=== PATIENT | male | born 1955 | race Caucasian/White ===

== ENCOUNTER 2025-04-15 09:01 | Outpatient (CLI) | payer OTHER, SELFPAY ==
--- NOTE | 2025-04-15 09:30 | CRLHL7_ITS ---
For Patients: As a result of the Century Cures Act, medical imaging exams and procedure reports are released immediately into your electronic medical record. You may view this report before your referring provider. If you have questions, please contact your health care provider. EXAM: MRI OF THE LEFT SHOULDER, WITHOUT CONTRAST CLINICAL INDICATION: Shoulder pain. PRIOR SURGERY: None reported. COMPARISON PLAIN FILMS: 31 March 2025 COMPARISON CROSS-SECTIONAL IMAGING STUDIES: None available at time of interpretation. TECHNICAL: Axial, sagittal oblique and coronal oblique T1, PD, PD FS and T2-weighted images. FINDINGS: GLENOHUMERAL JOINT: Effusion/Cyst: Small effusion. Mild hazy strandy synovitis. No obvious erosion. No paralabral or periarticular cyst or ganglion. Humeral Head Articular Cartilage: Diffuse grade 2 thinning. Glenoid Articular Cartilage: No osteochondral lesion or abnormality. Loose Bodies: No appreciable loose bodies. Capsule: No convincing evidence of adhesive capsulitis or capsular injury. OSSEOUS STRUCTURES: No fracture, marrow edema or marrow replacement process. CORACOACROMIAL ARCH: Acromial Morphology: Type 2 acromial morphology. No abnormal lateral or anterior downward sloping of the acromion. No os acromiale. Shallow subacromial spur at the insertion of the coracoacromial ligament. Lateral acromial thickness is 6 mm. Acromiohumeral Interval: The acromiohumeral interval is From superior subluxation humeral head. At its narrowest, the interval measures 3 mm. No abnormal thickening of the coracoacromial ligament. Coracohumeral Interval: The coracohumeral interval is narrow, perhaps with some anterior subluxation humeral head contributing. At its narrowest, the coracohumeral interval measures 4-5 mm. Coracoid index is 16 mm. ACROMIOCLAVICULAR JOINT REGION: AC Joint: Moderate hypertrophic arthrosis with small joint effusion. Ligaments: The coracoclavicular ligaments are intact. BURSAE: Subacromial-Subdeltoid: Small to moderate amount of simple appearing fluid diffusely. Subcoracoid: No abnormal bursal edema, thickening or bursal fluid. ROTATOR CUFF TENDONS AND MUSCLES AND DELTOID: Supraspinatus: Full-thickness tear retracted to the glenohumeral joint line with frayed tapered appearance of the retracted tendon. Mild grade 1 volume loss atrophy. Infraspinatus: Full-thickness tear retracted to the posterior humeral head. No significant muscle atrophy or edema. Teres Minor: No tendinosis, tendon tearing, muscle atrophy or muscle edema. Subscapularis: Prominent marginal degenerative tearing thins the superior tendon by 50 percent of expected. Intermediate signal tendinosis in the frayed intact tendon remnant. No muscle atrophy or edema. Deltoid: No muscle atrophy or edema. BICEPS TENDON, LONG HEAD: No intact biceps in the field of view with appearance favoring avulsion at the anchor which is blunted with the superior labrum. No significant fluid in the biceps tendon sheath. GLENOID LABRUM: Blunted superior labrum with some patchy intermediate signal mucoid degeneration and degenerative tearing. Mild blunting of the labrum circumferentially. No linear tear or displacement. OTHER FINDINGS: There is no abnormality within the suprascapular or spinoglenoid notches nor within the quadrilateral space. No axillary adenopathy or mass. IMPRESSION: 1. Subacute full-thickness tear supraspinatus and infraspinatus with superior subluxation humeral head. Minor grade 1 muscle atrophy supraspinatus. 2. Degenerative appearing partial tearing thins the subscapularis by 50 percent of expected without full-thickness defect. 3. Moderate hypertrophic arthrosis AC joint. 4. Subacromial spur at the insertion of normal thickness coracoacromial ligament. 5. Moderately large effusion between the subacromial/subdeltoid bursa and glenohumeral joint. Some synovitis in the joint. 6. 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 Dictated by Pablo Pappas MD @ 04/16/2025 1:20:27 PM (Electronically Signed)
== END 2025-04-15 09:02 | disposition home or self-care (01) ==
LOC: MRI 09:03
PROVIDERS: PCP Nurse Practitioner Family; Visit Provider Nurse Practitioner Family
DX: M25.512 Pain in left shoulder (principal); M75.102 Unspecified rotator cuff tear or rupture of left shoulder, not specified as traumatic; M19.012 Primary osteoarthritis, left shoulder; M25.412 Effusion, left shoulder; M94.212 Chondromalacia, left shoulder
CPT/HCPCS: 73221

== ENCOUNTER 2025-07-12 16:35 | Emergency (ER) | payer OTHER, SELFPAY ==
[2025-07-12] VITALS (26 sets, daily range): BP systolic 128–165; BP diastolic 81–126; PULSE 69–124; RESP 5–20; TEMP 36.3; O2SAT 91–99; BMI 29.5
--- NOTE | 2025-07-12 17:00 | ED.ARRPALP ---
HPI - Arrhythmia/Palpitations General Chief Complaint: Arrhythmia/Palpitations <Perez Obando MD - Last Filed: 07/12/25 18:45> Stated Complaint: irregular heart rate <Perez Obando MD - Last Filed: 07/12/25 18:45> Time Seen by Provider: 07/12/25 16:44 <Perez Obando MD - Last Filed: 07/12/25 18:45> History of Present Illness HPI narrative: This 69-year-old male comes in reporting palpitations that began earlier today. He does not report any chest pain. He has not had any nausea, vomiting, lightheadedness, or diaphoresis. He does report a history of hypertension and has rotator cuff problem in his shoulder needing a surgery. <Perez Obando MD - Last Filed: 07/12/25 18:45> Related Data Home Medications: Home Medications ?Medication ?Instructions ?Recorded ?Confirmed allopurinol 100 mg tablet 100 mg PO DAILY 03/31/25 04/18/25 amoxicillin 500 mg capsule 2,000 mg PO ONCE 03/31/25 03/31/25 atorvastatin 20 mg tablet 20 mg PO DAILY 03/31/25 04/18/25 budesonide-formoterol HFA 160 2 puff inhalation BID 03/31/25 04/18/25 mcg-4.5 mcg/actuation aerosol inhaler (Breyna) esomeprazole magnesium 20 mg 20 mg PO QDAY 03/31/25 04/18/25 capsule,delayed release losartan 100 mg tablet 100 mg PO DAILY 03/31/25 04/18/25 multivit with vr-PO-[id number]-omega 1 cap PO 03/31/25 04/18/25 3,6,9 no.3 400 mcg-300 mcg capsule spironolactone 25 mg tablet 25 mg PO DAILY 03/31/25 04/18/25 Previous Rx's ?Medication ?Instructions ?Recorded alfuzosin 10 mg tablet,extended 10 mg PO DAILY #90 tabs 03/31/25 release 24 hr amlodipine 10 mg tablet 10 mg PO DAILY #90 tabs 06/23/25 potassium chloride 20 mEq 20 meq PO BID #180 tabs 06/23/25 tablet,extended release(part/cryst) apixaban 5 mg (74 tabs) tablets in See Rx Instructions PO .COMPLEX 07/12/25 a dose pack (Eliquis DVT-PE Treat #74 ea 30D Start) <Perez Obando MD - Last Filed: 07/12/25 18:45> Allergies/Adverse Reactions: Allergies Allergy/AdvReac Type Severity Reaction Status Date / Time No Known Drug Allergies Allergy Verified 07/12/25 16:45 <Perez Obando MD - Last Filed: 07/12/25 18:45> Review of Systems Status of ROS: Reports: 10 or more systems reviewed and unremarkable except as noted in History and below <Perez Obando MD - Last Filed: 07/12/25 18:45> Narrative: Constitutional: No fevers, no weight gain or loss. Eyes: No discharge. No vision changes. HENT: No congestion, no sore throat, no ear pain. Cardiovascular: No chest pain. Palpitations as described above. Respiratory: No shortness of breath, no wheezes, no cough. Gastrointestinal: No abdominal pain, no vomiting, no diarrhea. Genitourinary: No dysuria, no hematuria. Musculoskeletal: Normal range of motion. Skin: No rashes, no pruritis. Neurological: No dizziness, weakness, sensory change, speech change. Endo/Heme/Allergies: No bruising or bleeding. No polydipsia. Pysch: no suicidality, no anxiety, no insomnia. All other systems reviewed and are negative. <Perez Obando MD - Last Filed: 07/12/25 18:45> [facility] Medical History: Medical History (Updated 07/12/25 @ 18:41 by Perez Obando MD) Pneumonia, organism unspecified ?J18.9 - Pneumonia, unspecified organism (ICD-10) Polyp of colon ?K63.5 - Polyp of colon (ICD-10) Reflux esophagitis ?K21.00 - Gastro-esophageal reflux disease with esophagitis, without bleeding (ICD-10) Dyslipidemia ?E78.5 - Hyperlipidemia, unspecified (ICD-10) Essential hypertension, benign ?I10 - Essential (primary) hypertension (ICD-10) <Perez Obando MD - Last Filed: 07/12/25 18:45> Surgical History: Surgical History (Updated 04/22/25 @ 08:44 by Fabiola Phan) H/O left knee surgery ?Z98.890 - Other specified postprocedural states (ICD-10) Lipoma of back ?D17.1 - Benign lipomatous neoplasm of skin and subcutaneous tissue of trunk (ICD-10) Hx of appendectomy ?Z90.49 - Acquired absence of other specified parts of digestive tract (ICD-10) History of total right knee replacement ?Z96.651 - Presence of right artificial knee joint (ICD-10) History of colonoscopy ?Z98.890 - Other specified postprocedural states (ICD-10) H/O arthroscopy of right knee ?Z98.890 - Other specified postprocedural states (ICD-10) S/P right rotator cuff repair (~2007) ?Z98.890 - Other specified postprocedural states (ICD-10) <Perez Obando MD - Last Filed: 07/12/25 18:45> Family History: Family History (Updated 04/22/25 @ 08:46 by Fabiola Phan) Father Stroke Heart disease Sister Breast cancer Heart disease <Perez Obando MD - Last Filed: 07/12/25 18:45> Exam Narrative: Exam Narrative: Constitutional: Well-developed, well-nourished, no acute distress. HEENT: Normocephalic, atraumatic. Neck: Normal range of motion. Nontender. Supple. Heart: Irregular. No murmurs. Tachycardia. Intact distal pulses. Lungs: Clear to auscultation. No chest discomfort. No wheezes, rhonchi, or rales. Abdomen: Normal bowel sounds. Nontender. No rebound tenderness. Genitalia: Deferred. Back: No midline tenderness. Normal range of motion. Extremities: Normal range of motion. No injury. Skin: Intact. No rash. Warm. No erythema or pallor. Neurologic: No altered sensation. No weakness. Alert and oriented. Psychiatric: No suicidality. No anxiety or depression. No insomnia. Nursing notes and vitals signs are reviewed. <Perez Obando MD - Last Filed: 07/12/25 18:45> Const: Vital Signs, click to edit/add: Vital Signs - 24 hr 07/12/25 16:41 07/12/25 16:55 07/12/25 16:57 Temperature 97.4 F L Pulse Rate 113 H 107 H Pulse Rate [Pulse Oximeter] 115 H Respiratory Rate 20 6 L Blood Pressure 129/95 H Blood Pressure [Ri ght Upper Arm] 156/89 H Pulse Oximetry 96 97 99 Oxygen Delivery Me thod Room Air Oxygen Flow Rate 07/12/25 17:00 07/12/25 17:01 07/12/25 17:15 Temperature Pulse Rate 115 H 124 H 91 Pulse Rate [Pulse Oximeter] Respiratory Rate 5 L 9 L Blood Pressure 150/100 H Blood Pressure [Ri ght Upper Arm] Pulse Oximetry 98 98 94 Oxygen Delivery Me thod Oxygen Flow Rate 07/12/25 17:30 07/12/25 17:32 07/12/25 17:45 Temperature Pulse Rate 94 92 88 Pulse Rate [Pulse Oximeter] Respiratory Rate 12 20 Blood Pressure 139/82 Blood Pressure [Ri ght Upper Arm] Pulse Oximetry 94 95 94 Oxygen Delivery Me thod Oxygen Flow Rate 07/12/25 18:05 07/12/25 18:09 07/12/25 18:15 Temperature Pulse Rate 103 H 96 Pulse Rate [Pulse Oximeter] Respiratory Rate 10 L Blood Pressure 134/107 H Blood Pressure [Ri ght Upper Arm] Pulse Oximetry 96 97 97 Oxygen Delivery Me thod Room Air Oxygen Flow Rate 07/12/25 18:19 07/12/25 18:21 07/12/25 18:27 Temperature Pulse Rate 90 116 H 82 Pulse Rate [Pulse Oximeter] Respiratory Rate 12 12 10 L Blood Pressure 145/98 H 165/126 H 129/82 Blood Pressure [Ri ght Upper Arm] Pulse Oximetry 97 96 92 Oxygen Delivery Me thod Nasal Cannula Oxygen Flow Rate 2 07/12/25 18:30 07/12/25 18:31 07/12/25 18:36 Temperature Pulse Rate 81 81 80 Pulse Rate [Pulse Oximeter] Respiratory Rate 12 10 L Blood Pressure 128/81 131/83 Blood Pressure [Ri ght Upper Arm] Pulse Oximetry 92 92 91 Oxygen Delivery Me thod Nasal Cannula Nasal Cannula Oxygen Flow Rate 2 2 07/12/25 18:41 07/12/25 18:45 07/12/25 18:47 Temperature Pulse Rate 80 74 73 Pulse Rate [Pulse Oximeter] Respiratory Rate 12 10 L 12 Blood Pressure 134/84 131/86 Blood Pressure [Ri ght Upper Arm] Pulse Oximetry 93 95 94 Oxygen Delivery Me thod Room Air Oxygen Flow Rate 07/12/25 18:48 07/12/25 18:50 07/12/25 18:51 Temperature Pulse Rate 73 74 Pulse Rate [Pulse Oximeter] Respiratory Rate 12 Blood Pressure 130/83 Blood Pressure [Ri ght Upper Arm] Pulse Oximetry 94 94 Oxygen Delivery Me thod Room Air Oxygen Flow Rate 07/12/25 18:56 07/12/25 19:00 07/12/25 19:01 Temperature Pulse Rate 70 70 69 Pulse Rate [Pulse Oximeter] Respiratory Rate 14 12 14 Blood Pressure 132/86 132/87 Blood Pressure [Ri ght Upper Arm] Pulse Oximetry 94 96 96 Oxygen Delivery Me thod Room Air Oxygen Flow Rate 07/12/25 19:29 07/12/25 19:30 Temperature Pulse Rate Pulse Rate [Pulse Oximeter] Respiratory Rate Blood Pressure Blood Pressure [Ri ght Upper Arm] Pulse Oximetry Oxygen Delivery Me thod Room Air Room Air Oxygen Flow Rate <Perez Obando MD - Last Filed: 07/12/25 18:45> Vital Signs, click to edit/add: Vital Signs - 24 hr 07/12/25 16:41 07/12/25 16:55 07/12/25 16:57 Temperature 97.4 F L Pulse Rate 113 H 107 H Pulse Rate [Pulse Oximeter] 115 H Respiratory Rate 20 6 L Blood Pressure 129/95 H Blood Pressure [Ri ght Upper Arm] 156/89 H Pulse Oximetry 96 97 99 Oxygen Delivery Me thod Room Air Oxygen Flow Rate 07/12/25 17:00 07/12/25 17:01 07/12/25 17:15 Temperature Pulse Rate 115 H 124 H 91 Pulse Rate [Pulse Oximeter] Respiratory Rate 5 L 9 L Blood Pressure 150/100 H Blood Pressure [Ri ght Upper Arm] Pulse Oximetry 98 98 94 Oxygen Delivery Me thod Oxygen Flow Rate 07/12/25 17:30 07/12/25 17:32 07/12/25 17:45 Temperature Pulse Rate 94 92 88 Pulse Rate [Pulse Oximeter] Respiratory Rate 12 20 Blood Pressure 139/82 Blood Pressure [Ri ght Upper Arm] Pulse Oximetry 94 95 94 Oxygen Delivery Me thod Oxygen Flow Rate 07/12/25 18:05 07/12/25 18:09 07/12/25 18:15 Temperature Pulse Rate 103 H 96 Pulse Rate [Pulse Oximeter] Respiratory Rate 10 L Blood Pressure 134/107 H Blood Pressure [Ri ght Upper Arm] Pulse Oximetry 96 97 97 Oxygen Delivery Me thod Room Air Oxygen Flow Rate 07/12/25 18:19 07/12/25 18:21 07/12/25 18:27 Temperature Pulse Rate 90 116 H 82 Pulse Rate [Pulse Oximeter] Respiratory Rate 12 12 10 L Blood Pressure 145/98 H 165/126 H 129/82 Blood Pressure [Ri ght Upper Arm] Pulse Oximetry 97 96 92 Oxygen Delivery Me thod Nasal Cannula Oxygen Flow Rate 2 07/12/25 18:30 07/12/25 18:31 07/12/25 18:36 Temperature Pulse Rate 81 81 80 Pulse Rate [Pulse Oximeter] Respiratory Rate 12 10 L Blood Pressure 128/81 131/83 Blood Pressure [Ri ght Upper Arm] Pulse Oximetry 92 92 91 Oxygen Delivery Me thod Nasal Cannula Nasal Cannula Oxygen Flow Rate 2 2 07/12/25 18:41 07/12/25 18:45 07/12/25 18:47 Temperature Pulse Rate 80 74 73 Pulse Rate [Pulse Oximeter] Respiratory Rate 12 10 L 12 Blood Pressure 134/84 131/86 Blood Pressure [Ri ght Upper Arm] Pulse Oximetry 93 95 94 Oxygen Delivery Me thod Room Air Oxygen Flow Rate 07/12/25 18:48 07/12/25 18:50 07/12/25 18:51 Temperature Pulse Rate 73 74 Pulse Rate [Pulse Oximeter] Respiratory Rate 12 Blood Pressure 130/83 Blood Pressure [Ri ght Upper Arm] Pulse Oximetry 94 94 Oxygen Delivery Me thod Room Air Oxygen Flow Rate 07/12/25 18:56 07/12/25 19:00 07/12/25 19:01 Temperature Pulse Rate 70 70 69 Pulse Rate [Pulse Oximeter] Respiratory Rate 14 12 14 Blood Pressure 132/86 132/87 Blood Pressure [Ri ght Upper Arm] Pulse Oximetry 94 96 96 Oxygen Delivery Me thod Room Air Oxygen Flow Rate 07/12/25 19:29 07/12/25 19:30 Temperature Pulse Rate Pulse Rate [Pulse Oximeter] Respiratory Rate Blood Pressure Blood Pressure [Ri ght Upper Arm] Pulse Oximetry Oxygen Delivery Me thod Room Air Room Air Oxygen Flow Rate <Neha Velasco MD - Last Filed: 07/12/25 22:02> Course Reevaluation(s) Time of Reevaluation #1: 18:25 <Neha Velasco MD - Last Filed: 07/12/25 22:02> Reevaluation #1: Was asked to provide procedural sedation for patient for electrical cardioversion. Patient had appropriate hemodynamic, cardiopulmonary monitoring. Respiratory therapy was in attendance as well. Supplemental oxygen was applied. Patient was given 100 mg IV propofol. This achieved quick an adequate sedation for patient. He had no complications with recovery, there were no concerning cardiopulmonary issues. Patient met post sedation criteria at time of discharge. There were no immediate complications. Please see separate note for actual procedure per Dr. Obando. <Neha Velasco MD - Last Filed: 07/12/25 22:02> Vital Signs Vital signs: Initial Vital Signs Temperature 97.4 F L 07/12/25 16:41 Temperature Source Temporal Artery Scan 07/12/25 16:41 Pulse Rate 115 H 07/12/25 16:41 Pulse Rhythm Irregular 07/12/25 16:41 Pulse Strength 3+ Normal 07/12/25 16:41 Respiratory Rate 20 07/12/25 16:41 Blood Pressure 156/89 H 07/12/25 16:41 Blood Pressure Mean 111 H 07/12/25 16:41 Blood Pressure Position Sitting 07/12/25 16:41 Pulse Oximetry 96 07/12/25 16:41 Oxygen Delivery Method Room Air 07/12/25 16:41 Vital Signs Temperature 97.4 F L 07/12/25 16:41 Pulse Rate 115 H 07/12/25 16:41 Respiratory Rate 20 07/12/25 16:41 Blood Pressure 156/89 H 07/12/25 16:41 Pulse Oximetry 96 07/12/25 16:41 Oxygen Delivery Method Room Air 07/12/25 16:41 Temperature 97.4 F L 07/12/25 16:41 Pulse Rate 69 07/12/25 19:01 Respiratory Rate 14 07/12/25 19:01 Blood Pressure 132/87 07/12/25 19:01 Pulse Oximetry 96 07/12/25 19:01 Oxygen Delivery Method Room Air 07/12/25 19:30 Oxygen Flow Rate 2 07/12/25 18:36 <Perez Obando MD - Last Filed: 07/12/25 18:45> Initial Vital Signs Temperature 97.4 F L 07/12/25 16:41 Temperature Source Temporal Artery Scan 07/12/25 16:41 Pulse Rate 115 H 07/12/25 16:41 Pulse Rhythm Irregular 07/12/25 16:41 Pulse Strength 3+ Normal 07/12/25 16:41 Respiratory Rate 20 07/12/25 16:41 Blood Pressure 156/89 H 07/12/25 16:41 Blood Pressure Mean 111 H 07/12/25 16:41 Blood Pressure Position Sitting 07/12/25 16:41 Pulse Oximetry 96 07/12/25 16:41 Oxygen Delivery Method Room Air 07/12/25 16:41 Vital Signs Temperature 97.4 F L 07/12/25 16:41 Pulse Rate 115 H 07/12/25 16:41 Respiratory Rate 20 07/12/25 16:41 Blood Pressure 156/89 H 07/12/25 16:41 Pulse Oximetry 96 07/12/25 16:41 Oxygen Delivery Method Room Air 07/12/25 16:41 Temperature 97.4 F L 07/12/25 16:41 Pulse Rate 69 07/12/25 19:01 Respiratory Rate 14 07/12/25 19:01 Blood Pressure 132/87 07/12/25 19:01 Pulse Oximetry 96 07/12/25 19:01 Oxygen Delivery Method Room Air 07/12/25 19:30 Oxygen Flow Rate 2 07/12/25 18:36 <Neha Velasco MD - Last Filed: 07/12/25 22:02> Medications Administered Medications: Discontinued Medications Generic Name Dose Route Start Last Admin Trade Name Freq PRN Reason Stop Dose Admin Apixaban 10 mg 07/12/25 18:37 07/12/25 19:01 Apixaban 5 Mg Tablet PO 07/12/25 18:38 10 mg ONCE ONE Administration Diltiazem HCl 20 mg 07/12/25 16:57 07/12/25 17:16 Diltiazem 5 Mg/Ml Inj IVP 07/12/25 16:58 20 mg ONCE ONE Administration Magnesium Sulfate/Dextrose 1 gm in 100 mls @ 200 mls/hr 07/12/25 17:15 07/12/25 18:30 Magnesium Sulf 1 G/100 Ml IVPB 07/12/25 17:44 Infused ONCE ONE Infusion Magnesium Sulfate 1 gm 07/12/25 16:57 07/12/25 17:27 Magnesium Sulfate 0.5 Gm/Ml Inj IV 07/12/25 16:58 Not Given ONCE ONE Propofol 200 mg 07/12/25 17:46 07/12/25 18:21 Propofol 10 Mg/Ml Inj IVP 07/12/25 17:47 100 mg ONCE ONE Administration <Perez Obando MD - Last Filed: 07/12/25 18:45> Discontinued Medications Generic Name Dose Route Start Last Admin Trade Name Freq PRN Reason Stop Dose Admin Apixaban 10 mg 07/12/25 18:37 07/12/25 19:01 Apixaban 5 Mg Tablet PO 07/12/25 18:38 10 mg ONCE ONE Administration Diltiazem HCl 20 mg 07/12/25 16:57 07/12/25 17:16 Diltiazem 5 Mg/Ml Inj IVP 07/12/25 16:58 20 mg ONCE ONE Administration Magnesium Sulfate/Dextrose 1 gm in 100 mls @ 200 mls/hr 07/12/25 17:15 07/12/25 18:30 Magnesium Sulf 1 G/100 Ml IVPB 07/12/25 17:44 Infused ONCE ONE Infusion Magnesium Sulfate 1 gm 07/12/25 16:57 07/12/25 17:27 Magnesium Sulfate 0.5 Gm/Ml Inj IV 07/12/25 16:58 Not Given ONCE ONE Propofol 200 mg 07/12/25 17:46 07/12/25 18:21 Propofol 10 Mg/Ml Inj IVP 07/12/25 17:47 100 mg ONCE ONE Administration <Neha Velasco MD - Last Filed: 07/12/25 22:02> MDM - Arrhythmia/Palpitations MDM Narrative Medical decision making narrative: This patient comes in with atrial fibrillation and rapid ventricular response. His symptoms began several hours prior to arrival here. EKG confirmed these findings and labs all returned with normal results. The patient did receive 20 mg of diltiazem intravenously which slowed his heart rate but he continues in atrial fibrillation. I did discuss options going forward and recommended synchronized cardioversion which the patient agreed to. After acquiring informed consent the patient did receive 100 mg of propofol administered by Dr. Zavala for sufficient sedation. With the monitor in synchronized mode the patient did receive a 1 time dose of 150 joules to successfully cardiovert back to normal sinus rhythm. The patient tolerated this well. He had nasal cannula in place and did have a brief time where a jaw thrust was performed to improve his airway however he was never hypoxic. The patient recovered normally. Repeat EKG shows normal sinus rhythm without any ST or T-wave abnormality. This patient is okay to return home. I advised him to follow-up with his primary physician. He is on a couple antihypertensive medications but none of these are beta-blockers. One of them is amlodipine, a calcium channel tai which may have some benefit for his heart rhythm. If symptoms are recurrent he is instructed to return at which time it may be appropriate to consider a beta-tai for ongoing treatment. <Perez Obando MD - Last Filed: 07/12/25 18:45> Lab Data Labs: Lab Results 07/12/25 07/12/25 Range/Units 17:04 17:08 WBC 8.28 (4.50-11.00) K/uL RBC 4.96 (4.30-5.90) m/uL Hgb 14.6 (13.5-17.5) gm/dL Hct 42.8 (37.0-53.0) % MCV 86 (80-100) fL MCH 29 (26-34) pg MCHC 34 (32-36) gm/dL RDW Coeff of Skylar 12.9 (11.5-15.5) % Plt Count 173 (140-440) K/uL Neut % (Auto) 70.8 (42.0-72.0) % Lymph % (Auto) 16.4 L (20-44) % [place] % (Auto) 8.9 (0.0-11.0) % Eos % (Auto) 3.4 (0.0-7.0) % Baso % (Auto) 0.4 (0.0-3.0) % Neut # (Auto) 5.86 (1.7-7.0) K/uL Lymph # (Auto) 1.40 (0.90-2.90) K/uL [place] # (Auto) 0.70 (0.00-0.90) K/UL Eos # (Auto) 0.28 (0.00-0.50) K/uL Baso # (Auto) 0.03 (0.00-0.30) K/uL Abs Immat Gran (auto) 0.01 (0.00-0.30) K/uL Imm/Tot Granulo (auto) 0.1 % Sodium 140 (135-149) mmol/L Potassium 3.6 (3.6-5.1) mmol/L Chloride 106 (96-114) mmol/L Carbon Dioxide 23 (20-32) mmol/L Anion Gap 11 (7-15) mEq/L BUN 16 (7-30) mg/dL Creatinine 1.0 (0.5-1.5) mg/dL Estimated Creat Clear 83.33 Estimated GFR 81 ml/min Glucose 128 H (60-115) mg/dL Calcium 9.3 (8.4-10.6) mg/dL Magnesium 2.0 (1.5-2.6) mg/dL POC Troponin I 0.01 (0.01-0.04) ng/ml <Perez Obando MD - Last Filed: 07/12/25 18:45> Lab Results 07/12/25 07/12/25 Range/Units 17:04 17:08 WBC 8.28 (4.50-11.00) K/uL RBC 4.96 (4.30-5.90) m/uL Hgb 14.6 (13.5-17.5) gm/dL Hct 42.8 (37.0-53.0) % MCV 86 (80-100) fL MCH 29 (26-34) pg MCHC 34 (32-36) gm/dL RDW Coeff of Skylar 12.9 (11.5-15.5) % Plt Count 173 (140-440) K/uL Neut % (Auto) 70.8 (42.0-72.0) % Lymph % (Auto) 16.4 L (20-44) % [place] % (Auto) 8.9 (0.0-11.0) % Eos % (Auto) 3.4 (0.0-7.0) % Baso % (Auto) 0.4 (0.0-3.0) % Neut # (Auto) 5.86 (1.7-7.0) K/uL Lymph # (Auto) 1.40 (0.90-2.90) K/uL [place] # (Auto) 0.70 (0.00-0.90) K/UL Eos # (Auto) 0.28 (0.00-0.50) K/uL Baso # (Auto) 0.03 (0.00-0.30) K/uL Abs Immat Gran (auto) 0.01 (0.00-0.30) K/uL Imm/Tot Granulo (auto) 0.1 % Sodium 140 (135-149) mmol/L Potassium 3.6 (3.6-5.1) mmol/L Chloride 106 (96-114) mmol/L Carbon Dioxide 23 (20-32) mmol/L Anion Gap 11 (7-15) mEq/L BUN 16 (7-30) mg/dL Creatinine 1.0 (0.5-1.5) mg/dL Estimated Creat Clear 83.33 Estimated GFR 81 ml/min Glucose 128 H (60-115) mg/dL Calcium 9.3 (8.4-10.6) mg/dL Magnesium 2.0 (1.5-2.6) mg/dL POC Troponin I 0.01 (0.01-0.04) ng/ml <Neha Velasco MD - Last Filed: 07/12/25 22:02> ECG Data Attestation: I personally reviewed and interpreted this ECG as follows: <Perez Obando MD - Last Filed: 07/12/25 18:45> Interpretation: Atrial fibrillation with rapid ventricular response. Rate is 138 beats per minute. There are no ST or T-wave abnormalities. <Perez Obando MD - Last Filed: 07/12/25 18:45> Discharge Plan Discharge Clinical Impression: Atrial fibrillation <Perez Obando MD - Last Filed: 07/12/25 18:45> Patient Disposition: Home w/ Parent or Adult <Perez Obando MD - Last Filed: 07/12/25 18:45> Condition: Improved <Perez Obando MD - Last Filed: 07/12/25 18:45> Additional Instructions: Take Eliquis as prescribed. Follow up with MD as needed. Return if symptoms are recurrent. <Perez Obando MD - Last Filed: 07/12/25 18:45> Prescriptions: New Eliquoziel DVT-PE Treat 30D Start 5 mg (74 tabs) tablets,dose pack See Rx Instructions PO .COMPLEX Qty: 74 0RF Rx Instructions: orally per package directions No Action amoxicillin 500 mg capsule 2,000 mg PO ONCE atorvastatin 20 mg tablet 20 mg PO DAILY allopurinol 100 mg tablet 100 mg PO DAILY spironolactone 25 mg tablet 25 mg PO DAILY losartan 100 mg tablet 100 mg PO DAILY esomeprazole magnesium 20 mg capsule,delayed release(DR/EC) 20 mg PO QDAY budesonide-formoterol [Breyna] 160-4.5 mcg/actuation HFA aerosol inhaler 2 puff inhalation BID [id number],6,9 no.3 400-300 mcg capsule 1 cap PO alfuzosin 10 mg tablet extended release 24 hr 10 mg PO DAILY Qty: 90 3RF amlodipine 10 mg tablet 10 mg PO DAILY Qty: 90 3RF potassium chloride 20 mEq tablet,ER particles/crystals 20 meq PO BID Qty: 180 3RF <Perez Obando MD - Last Filed: 07/12/25 18:45> Follow Up/Referrals: June Herbert, [employer], FINAL [employer]URE [employer] [Primary Care Provider, Family Practice] <Perez Obando MD - Last Filed: 07/12/25 18:45> Stand Alone Forms: MyHealth Info Instructions <Perez Obando MD - Last Filed: 07/12/25 18:45>
[2025-07-12 17:15] LABS: Hematocrit* 42.8 % (37.0-53.0); Hemoglobin* 14.6 gm/dL (13.5-17.5); Immature Granulocytes Abs Auto 0.01 K/uL (0.00-0.30); Immature Granulocytes Pct Auto 0.1 %; Mean Corpuscular HGB Conc 34 gm/dL (32-36); Mean Corpuscular Hemoglobin 29 pg (26-34); Mean Corpuscular Volume 86 fL (80-100); RDW Coefficient of Variation % 12.9 % (11.5-15.5); Red Blood Count* 4.96 m/uL (4.30-5.90); White Blood Count* 8.28 K/uL (4.50-11.00)
[2025-07-12 17:16] LABS: Lymphocytes Absolute Auto 1.40 K/uL (0.90-2.90); Slide Review Reflex No
[2025-07-12] MEDS: dilTIAZem 5 MG/ML inj 20 MG IVP (17:16)
[2025-07-12 17:18] LABS: Troponin, Point-of-Care* 0.01 ng/ml (0.01-0.04)
[2025-07-12 17:21] LABS: Chloride* 106 mmol/L (96-114); Potassium* 3.6 mmol/L (3.6-5.1); Sodium* 140 mmol/L (135-149)
[2025-07-12 17:24] LABS: Anion Gap 11 mEq/L (7-15); Blood Urea Nitrogen* 16 mg/dL (7-30); Calcium* 9.3 mg/dL (8.4-10.6); Carbon Dioxide* 23 mmol/L (20-32); Creatinine* 1.0 mg/dL (0.5-1.5); Est. Creatinine Clearance* 83.33; Estimated Glomerular Filt Rate 81 ml/min; Glucose* 128 mg/dL (60-115)
[2025-07-12] MEDS: MAGNESIUM SULF 1 G/100 ML 1 GM/100 ML PIGGYBACK IVPB (17:43)
[2025-07-12] MEDS: PROPOFOL 10 MG/ML INJ 200 MG IVP (18:21)
[2025-07-12] MEDS: APIXABAN 5 MG TABLET 10 MG PO (19:01)
== END 2025-07-12 19:45 | disposition home or self-care (01) ==
PROVIDERS: Emergency Provider Emergency Medicine Emergency Medical Services; PCP Nurse Practitioner Family
DX: I48.91 Unspecified atrial fibrillation (principal)
CPT/HCPCS: 36415; 80048; 83735; 84484; 85025; 92960; 93005; 99284; 99285; A9270; J2704; J3475